=== PATIENT | female | born 2000 | race Caucasian/White ===

== ENCOUNTER 2024-05-10 09:41 | Outpatient (AMB) | payer BC, SELFPAY ==
--- NOTE | 2024-05-10 09:54 | MHC.PC.OV ---
Vital Signs 05/10/24 09:56 Height 5 ft 4.96 in Weight 129 lb 2 oz BMI 21.5 BP 100/62 Blood Pressure Location Lt brachial Position Sitting Respiration 12 Pulse 82 Pulse Source Pulse Oximeter Pulse Oximetry (%) 99 Oxygen Delivery Method Room Air Intake Visit Reasons: cardiovascular tech-est care Intake Note: New patient visit Clinical Advisor Required: No Allergies No Known Allergies Allergy (Verified 05/10/24 09:54) Tobacco use date assessed: 05/10/24 Dental Screening Dental Screen Date: 05/10/24 Did you have a dental visit in the last 12 months?: Yes Did you have a dental problem in the last 6 months where you did not have access to dental care?: No Was dental information given to patient?: Patient has dentist HPI HPI Comments History of Present Illness Details This is a 23-year-old female with no significant past medical history presenting for a physical exam. She is a new patient, but she saw me at [facility]. She has not had any significant medical issues within the past year. She denies ER visits or hospitalizations. Patient is established with [facility] for annual exams. Flu vaccine is given today. She will schedule her eye exam. She is up-to-date with dental visits. She will return for fasting lab work. ROS: Constitutional: No unexplained weight loss, fever, chills, fatigue or night sweats. Eyes: No vision changes, blurry vision, double vision, eye pain, eye redness, eye discharge. ENT: No hearing loss, sneezing, congestion, runny nose or sore throat. Respiratory: No shortness of breath, cough or sputum production. Cardiovascular: No chest pain, chest pressure or chest discomfort. No palpitations or pedal edema. Gastrointestinal: No anorexia, nausea, vomiting or diarrhea. No abdominal pain or blood in stool. Genitourinary: No dysuria, hematuria, urinary frequency. Neurologic: No headache, dizziness, syncope, unilateral weakness, ataxia, numbness or tingling in the extremities. Musculoskeletal: No muscle pain, back pain, joint pain or swelling. Hematologic/Lymphatics: No bleeding or bruising. No painful lymph nodes. Skin: No rash or itching. Endocrine: No cold or heat intolerance. No polyuria or polydipsia. Psychiatric: No depression or anxiety. No SI/HI. Physical exam: Constitutional: Alert, in no distress. Head: Normocephalic. Eyes: Pupils are equal, round and reactive to light. Extraocular muscles intact. Ear, Nose and Throat: Canals clear. TMs normal. Normal nasal mucosa. No nasal discharge. No oral lesions. Neck: Supple, Full range of motion. No lymphadenopathy. No palpable thyroid masses. Respiratory: Clear to auscultation. Cardiovascular: S1 S2 regular. No murmurs. Gastrointestinal: Abdomen soft, non-tender, non-distended. Normal bowel sounds. No palpable masses. Neurologic: No focal neurological deficits. Symmetric patellar reflexes. Moves all extremities spontaneously. Sensation intact bilaterally. Skin: No rashes or lesions. Musculoskeletal: No gross deformities. Normal range of motion. Extremities: Warm and well perfused. No clubbing, cyanosis or edema. 3+ peripheral pulses bilaterally. Psychiatric: Normal mood and affect [facility] Medical History (Updated 05/10/24 @ 10:05 by EFRAÍN Pringle) Screening for cardiovascular condition Routine physical examination Surgical History (Updated 10/17/23 @ 08:12 by Dorothy Parmar CMA) H/O wisdom tooth extraction Family History (Updated 10/17/23 @ 08:15 by Dorothy Parmar CMA) Mother Migraine Father DVT (deep venous thrombosis) High blood cholesterol Sister Ovarian tumor Social History (Updated 10/17/23 @ 08:15 by Dorothy Parmar CMA) Housing: House Alcohol intake: current Patient Tobacco Use Status: Never used Tobacco e-Cigarette/Vaping Use: Never Used Second Hand Smoke Exposure: No service: No Current occupational status: employed 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 1. Little interest or pleasure in doing things: not at all 2. Feeling down, depressed, or hopeless: not at all 3. Trouble falling or staying asleep, or sleeping too much: several days 4. Feeling tired or having little energy: not at all 5. Poor appetite or overeating: not at all 6. Feeling bad about yourself - or that you are a failure or have let yourself or your family down: not at all 7. Trouble concentrating on things, such as reading the newspaper or watching television: several days 8. Moving or speaking so slowly that other people could have noticed. Or the opposite - being so fidgety or restless that you have been moving around a lot more than usual: not at all 9. Thoughts that you would be better off or of hurting yourself in some way: not at all Total score: 2 Depression Screening Interpretation: Negative Depression Screening Done: Yes 29610 - PHQ-9 Billing: Yes Source: Developed by Drs. Pranay Stevenson, Naty Langley, Horacio Marroquin and colleagues, with an educational chele from [employer]. Thrive Questionnaire Date Thrive assessed: 05/10/24 I am a: Patient What is your living situation today?: I have a steady place to live Within the past 12 months, did the food you bought not last and you didn't have the money to get more?: Never true Within the past 12 months, did you worry whether your food would run out before you got money to buy more?: Never true Do you have trouble paying for medicines?: No Do you have trouble getting transportation to medical appointments?: No Do you have trouble paying your heating and electricity bill?: No Do you have trouble taking care of your child, family member or friend?: No Do you have trouble with day-to-day activities such as bathing, preparing meals, shopping, managing finances, etc.?: No Are you currently unemployed and looking for a job?: No Are you interested in more education?: I choose not to answer this question Please select the resources that you would like help with: None Currently or been in a relationship where the following occur: No concerns reported THRIVE Score: 0 AUDIT C Alcohol Use Questionnaire (AUDIT-C) 1. How often do you have a drink containing alcohol?: 2-4 times a month 2. How many drinks containing alcohol do you have on a typical day when you are drinking?: 1 or 2 3. How often do you have six or more drinks on one occasion?: Never Total Score: 2 KARY-7 AMB Questionnaire KARY-7 Date KARY - 7 assessed: 05/10/24 Feeling nervous, anxious, or on edge: 1 = Several days Not being able to stop or control worryin = Several days Worrying too much about different things: 1 = Several days Trouble relaxin = Not at all Being so restless that it is hard to sit still: 0 = Not at all Becoming easily annoyed or irritable: 1 = Several days Feeling afraid as if something awful might happen: 0 = Not at all Total KARY-7 score (0-4 normal; 5-9 mild; 10-14 moderate; 15-21 severe): 4 Source: Developed by Drs. Pranay Stevenson, Naty Langley, Horacio Marroquin and colleagues, with an educational chele from [employer]. KARY-7 Assessment Billing KARY-7 Assessment Tool: KARY-7 Assessment 97170 Physical exam (Primary Care) Vital Signs: Last Vital Signs Pulse 82 05/10/24 09:56 Resp 12 05/10/24 09:56 BP 100/62 05/10/24 09:56 Pulse Ox 99 05/10/24 09:56 Oxygen Delivery Method Room Air 05/10/24 09:56 BMI result Body Mass Index 21.5 Tobacco/Smoking Status: Tobacco use Status Tobacco use date assessed 05/10/24 05/10/24 09:59 Patient Tobacco Use Status Never used Tobacco 05/10/24 09:59 e-Cigarette/Vaping Use Never Used 05/10/24 09:59 PHQ-9: PHQ-9 Score PHQ-9: Total score 2 05/10/24 10:16 Depression Screening Interpretation: Negative Currently or been in a relationship where the following occur: No concerns reported Office Procedures Flu Questionnaire Does the patient have a severe egg allergy?: No Does the patient have severe life threatening allergies?: No Does the patient have a fever or illness today?: No Has the patient ever had Guillain-Aspers Syndrome?: No Has the patient ever had any past reaction to a flu shot?: No Immunizations Fluarix Triv [id number] (PF) 45 mcg (15 mcg x 3)/0.5 mL IM syringe Performing Provider: EFRAÍN Pringle Performing Location: [facility] [place] [facility] Administered by: Dorothy Parmar CMA on 05/10/24 10:25 Dose Route Admin Location Dispensed Lot Number Expiration Date [facility] [place] [employer] Technician 0.5 mL IM Right Deltoid 0.5 mL [id number] 08/27/24 [id number] [employer] VIS Given Date VIS Provided VIS Publication Date 05/10/24 Single Vaccine 20 Eligibility Eligibility Date Funding Source Not [facility] Eligible 05/10/24 Private Coding Level of Care Code Est Pt Prev Care 18-39y(78555) Diagnoses Routine physical examination Z00.00 Additional Codes KARY-7 Assessment Billing - KARY-7 Assessment Tool: KARY-7 Assessment 84270 ([id number]) PHQ-9 - 23080 - PHQ-9 Billing: Yes ([id number]) Assessment & Plan Assessment & Plan (1) Routine physical examination: Code(s): Z00.00 - Encounter for general adult medical examination without abnormal findings Category: Medical Plan Patient is seen today for a routine physical. As part of this visit we reviewed the following issues, which are considered and essential part of preventative health in this age group: - Breast Cancer screening - Annual Economic Development Manager exam - Blood pressure screening - Cholesterol screening - Osteoporosis prevention including calcium/vitamin D intake, weight bearing exercise & smoking cessation - Nutritional and exercise counseling - Counseling of injury prevention including fire prevention, smoke alarms and seat belt usage - Screening for depression - Prevention of and/or testing for infectious diseases - declined screening - Recommendations about immunizations - Recommendation of an eye exam - Screening for substance abuse Return in 1 year for CPE. Orders: Orders Influenza [id number] Immunization Today Z23 - Encounter for immunization Comprehensive Met. Panel Today Z00.00 - Encounter for general adult medical examination without abnormal findings, Z13.6 - Encounter for screening for cardiovascular disorders Lipid Panel Today Z00.00 - Encounter for general adult medical examination without abnormal findings, Z13.6 - Encounter for screening for cardiovascular disorders Complete Blood Count no Diff Today Z00.00 - Encounter for general adult medical examination without abnormal findings, Z13.6 - Encounter for screening for cardiovascular disorders
[2024-05-10 09:56] VITALS: BP 100/62; PULSE 82; RESP 12; O2SAT 99; BMI 21.5
--- OUTSIDE RECORDS SUMMARY | 2024-05-10 11:37 | XMS_ITS | Encounter Summary ---
Author Organization [facility] Address [address] [place] [address] Phone Care Team Providers Care Orthotist Name Role Phone Kim Murillo MD Primary Care Provider [phone] Encounter Details Date Type Department Care Team (Late st Contact Info) Description 11/16/2012 Documentation [facility] [place] Family Medicine [address] [place], [place] [id number] Family Medicine, Physician [address] [place], [place] [address] Social History Tobacco Use Types Packs/Day Years Used Date Smoking Tobacco: Never Assessed Comments Unknown Sex and Gender Information Value Date Recorded Sex Assigned at Female 09/26/2019 4:17 PM EDT Legal Sex Female 5:09 PM EDT Gender Identity Female 09/26/2019 4:17 PM EDT Sexual Orientation Don't know 10/06/2020 3: 26 PM EDT documented as of this encounter Plan of Treatment Not on file documented as of this encounter Visit Diagnoses Not on filedocumented in this encounter Care Teams Orthotist Relationship Specialty Start Date End Date Kim Murillo MD [address] [place] [address] PCP - General Pediatrics 02/28/20 05/31/22 documented as of this encounter
--- OUTSIDE RECORDS SUMMARY | 2024-05-10 11:37 | XMS_ITS | Encounter Summary ---
Author Organization [facility] Address [address] [place] [address] Phone Care Team Providers Care Lusterer Name Role Phone Kim Murillo MD Primary Care Provider [phone] Encounter Details Date Type Department Care Team (Late st Contact Info) Description 03/05/2015 Documentation [facility] [place] Family Medicine [address] [place], [place] 3487[address] Family Medicine, Physician [address] [place], [place] [address]69731 Social History Tobacco Use Types Packs/Day Years [...] on filedocumented in this encounter Care Teams Lusterer Relationship Specialty Start Date End Date iKm Murillo MD [address] [place] [address] PCP - General Pediatrics 02/28/20 05/31/22 documented as of this encounter
--- OUTSIDE RECORDS SUMMARY | 2024-05-10 11:37 | XMS_ITS | Encounter Summary ---
Author Organization [facility] Address [address] [place] [address] Phone Care Team Providers Care Fuse Spooler Name Role Phone Kim Murillo MD Primary Care Provider [phone] Encounter Details Date Type Department Care Team (Late st Contact Info) Description 05/04/[address] [facility] [place] Family Medicine [address] [place], [place] [phone] Family Medicine, Physician [address] [place], [place] 9740[address] Social History Tobacco Use Types Packs/Day Years [...] on filedocumented in this encounter Care Teams Fuse Spooler Relationship Specialty Start Date End Date Kim Murillo MD [address] [place] [address] PCP - General Pediatrics 02/28/20 05/31/22 documented as of this encounter
--- OUTSIDE RECORDS SUMMARY | 2024-05-10 11:37 | XMS_ITS | Encounter Summary ---
Author Organization [facility] Address [address] [place] [address] Phone Care Team Providers Care Certified Adapted Physical Educator Name Role Phone Kim Murillo MD Primary Care Provider Encounter Details Date Type Department Care Team (Late st Contact Info) Description 07/05/2012 Documentation [facility] [place] Family Medicine [address] [place], [place] [phone] Family Medicine, Physician [address] [place], [place] [address]481 Social History Tobacco Use Types Packs/Day Years [...] on filedocumented in this encounter Care Teams Certified Adapted Physical Educator Relationship Specialty Start Date End Date Kim Murillo MD [address] [place] [address] PCP - General Pediatrics 02/28/20 05/31/22 documented as of this encounter
--- OUTSIDE RECORDS SUMMARY | 2024-05-10 11:37 | XMS_ITS | Encounter Summary ---
Author Organization [facility] Address [address] [place] [address] Phone Care Team Providers Care Beauty Counselor Name Role Phone Kim Murillo MD Primary Care Provider [phone] Encounter Details Date Type Department Care Team (Late st Contact Info) Description 05/04/2012 Documentation [facility] [place] [address] [place], [place] [address] Family Medicine, Physician [address] [place], [place] 264541 Social History Tobacco Use Types Packs/Day Years [...] on filedocumented in this encounter Care Teams Beauty Counselor Relationship Specialty Start Date End Date Kim Murillo MD [address] [place] [address] PCP - General Pediatrics 02/28/20 05/31/22 documented as of this encounter
--- OUTSIDE RECORDS SUMMARY | 2024-05-10 11:37 | XMS_ITS | Encounter Summary ---
Author Organization [facility] Address [address] [place] [address] Phone Care Team Providers Care Columnist/Commentator Name Role Phone Kim Murillo MD Primary Care Provider [phone] Encounter Details Date Type Department Care Team (Late st Contact Info) Description 11/16/2012 Documentation [facility] [place] Family Medicine [address] [place], [place] [phone] Family Medicine, Physician [address], [place] 896751 Social History Tobacco Use Types Packs/Day Years [...] on filedocumented in this encounter Care Teams Columnist/Commentator Relationship Specialty Start Date End Date Kim Murillo MD [address] [place] [address] PCP - General Pediatrics 02/28/20 05/31/22 documented as of this encounter
--- OUTSIDE RECORDS SUMMARY | 2024-05-10 11:37 | XMS_ITS | Encounter Summary ---
Author Organization [facility] Address [address] [place] [address] Phone Care Team Providers Care Life Tester [employer]board [employer] Name Role Phone Kim Murillo MD Primary Care Provider [phone] Encounter Details Date Type Department Care Team (Late st Contact Info) Description 07/05/2012 Documentation [facility] [place] Family Medicine [address] [place], [place] [id number] Family Medicine, Physician [address] [place], [place] [address]31 Social History Tobacco Use Types Packs/Day Years [...] on filedocumented in this encounter Care Teams Life Tester [employer] Relationship Specialty Start Date End Date Kim Murillo MD [address] [place] [address] PCP - General Pediatrics 02/28/20 05/31/22 documented as of this encounter
--- OUTSIDE RECORDS SUMMARY | 2024-05-10 11:37 | XMS_ITS | Encounter Summary ---
Author Organization [facility] Address [address] [place] [address] Phone Care Team Providers Care Terminal Clerk Name Role Phone Kim Murillo MD Primary Care Provider [phone] Encounter Details Date Type Department Care Team (Late st Contact Info) Description 05/04/2012 Documentation [facility] [place] [address] [place], [place] [phone] Family Medicine, Physician [address] [place], [place] 754001 Social History Tobacco Use Types Packs/Day Years [...] on filedocumented in this encounter Care Teams Terminal Clerk Relationship Specialty Start Date End Date Kim Murillo MD [address] [place] [address] PCP - General Pediatrics 02/28/20 05/31/22 documented as of this encounter
--- OUTSIDE RECORDS SUMMARY | 2024-05-10 11:37 | XMS_ITS | Encounter Summary ---
Author Organization [facility] Address [address] [place] [address] Phone Care Team Providers Care Payroll Administrative Assistant Name Role Phone Kim Murillo MD Primary Care Provider [phone] Encounter Details Date Type Department Care Team (Late st Contact Info) Description 05/04/2012 Documentation [facility] [place] Family Medicine [address] [place], [place] [phone] Family Medicine, Physician [address] [place], [place] 702851 Social History Tobacco Use Types Packs/Day Years [...] on filedocumented in this encounter Care Teams Payroll Administrative Assistant Relationship Specialty Start Date End Date Kim Murillo MD [address] [place] [address] PCP - General Pediatrics 02/28/20 05/31/22 documented as of this encounter
--- OUTSIDE RECORDS SUMMARY | 2024-05-10 11:37 | XMS_ITS | Encounter Summary ---
Author Organization [facility] Address [address] [place] [address] Phone Care Team Providers Care Farmworker Poultry Name Role Phone Kim Murillo MD Primary Care Provider [phone] Encounter Details Date Type Department Care Team (Late st Contact Info) Description 09/19/2014 Documentation [facility] [place] [address] [place], [place] [phone] Family Medicine, Physician [address] [place], [place] [address]771 Social History Tobacco Use Types Packs/Day Years [...] on filedocumented in this encounter Care Teams Farmworker Poultry Relationship Specialty Start Date End Date Kim Murillo MD [address] [place] [address] PCP - General Pediatrics 02/28/20 05/31/22 documented as of this encounter
--- OUTSIDE RECORDS SUMMARY | 2024-05-10 11:38 | XMS_ITS | Encounter Summary ---
Author Organization [facility] Address [address] [place] [address] Phone Care Team Providers Care Condenser Tube Tender Name Role Phone Kim Murillo MD Primary Care Provider [phone] Encounter Details Date Type Department Care Team (Late st Contact Info) Description 09/04/2013 Documentation [facility] [place] Family Medicine [address] [place], [place] [phone] Family Medicine, Physician [address] [place], [place] 500301 Social History Tobacco Use Types Packs/Day Years [...] on filedocumented in this encounter Care Teams Condenser Tube Tender Relationship Specialty Start Date End Date Kim Murillo MD [address] [place] [address] PCP - General Pediatrics 02/28/20 05/31/22 documented as of this encounter
--- OUTSIDE RECORDS SUMMARY | 2024-05-10 11:38 | XMS_ITS | Encounter Summary ---
Author Organization [facility] Address [address] [place] [address] Phone Care Team Providers Care Avionics Installer Name Role Phone Kim Murillo MD Primary Care Provider [phone] Encounter Details Date Type Department Care Team (Late st Contact Info) Description 09/28/2016 [place] [facility] [place] [address] [place], [place] 3538993 Family Medicine, Physician [address] [place], [place] 813911 Social History Tobacco Use Types Packs/Day Years Used Date Smoking Tobacco: Never Comments:Never smoker Comments Unknown Sex and Gender Information Value [...] on filedocumented in this encounter Care Teams Avionics Installer Relationship Specialty Start Date End Date Kim Murillo MD [address] [place] [address] PCP - General Pediatrics 02/28/20 05/31/22 documented as of this encounter
--- OUTSIDE RECORDS SUMMARY | 2024-05-10 11:38 | XMS_ITS | Encounter Summary ---
Author Organization [facility] Address [address] [place] [address] Phone Care Team Providers Care Hand Silvering Supervisor Name Role Phone Kim Murillo MD Primary Care Provider [phone] Encounter Details Date Type Department Care Team (Late st Contact Info) Description 09/29/2010 Documentation [facility] [place] [address] [place], [place] [phone] Family Medicine, Physician [address], [place] [address]13291 Social History Tobacco Use Types Packs/Day Years [...] on filedocumented in this encounter Care Teams Hand Silvering Supervisor Relationship Specialty Start Date End Date Kim Murillo MD [address] [place] [address] PCP - General Pediatrics 02/28/20 05/31/22 documented as of this encounter
--- OUTSIDE RECORDS SUMMARY | 2024-05-10 11:38 | XMS_ITS | Encounter Summary ---
Author Organization [facility] Address [address] [place] [address] Phone Care Team Providers Care Boy'S Adviser Name Role Phone Kim Murillo MD Primary Care Provider [phone] Encounter Details Date Type Department Care Team (Late st Contact Info) Description 09/29/2010 Documentation [facility] [place] Family Medicine [address] [place], [place] [phone] Family Medicine, Physician [address], [place] 626691 Social History Tobacco Use Types Packs/Day Years [...] on filedocumented in this encounter Care Teams Boy'S Adviser Relationship Specialty Start Date End Date Kim Murillo MD [address] [place] [address] PCP - General Pediatrics 02/28/20 05/31/22 documented as of this encounter
--- OUTSIDE RECORDS SUMMARY | 2024-05-10 11:38 | XMS_ITS | Encounter Summary ---
Author Organization [facility] Address [address] [place] [address] Phone Care Team Providers Care Wharf Attendant Name Role Phone Kim Murillo MD Primary Care Provider Encounter Details Date Type Department Care Team (Late st Contact Info) Description 09/28/2016 Documentation [facility] [place] Family Medicine [address] [place], [place] [phone] Family Medicine, Physician [address] [place], [place] [address]1451 Social History Tobacco Use Types Packs/Day Years [...] on filedocumented in this encounter Care Teams Wharf Attendant Relationship Specialty Start Date End Date Kim Murillo MD [address] [place] [address] PCP - General Pediatrics 02/28/20 05/31/22 documented as of this encounter
--- OUTSIDE RECORDS SUMMARY | 2024-05-10 11:38 | XMS_ITS | Encounter Summary ---
Author Organization [facility] Address [address] [place] [address] Phone Care Team Providers Care Finance And Administration Manager Name Role Phone Kim Murillo MD Primary Care Provider [phone] Encounter Details Date Type Department Care Team (Late st Contact Info) Description 12/04/2010 Documentation [facility] [place] Family Medicine [address] [place], [place] [phone] Family Medicine, Physician [address] [place], [place] [address] Social History Tobacco Use Types Packs/Day Years [...] on filedocumented in this encounter Care Teams Finance And Administration Manager Relationship Specialty Start Date End Date Kim Murillo MD [address] [place] [address] PCP - General Pediatrics 02/28/20 05/31/22 documented as of this encounter
--- OUTSIDE RECORDS SUMMARY | 2024-05-10 11:38 | XMS_ITS | Encounter Summary ---
Author Organization [facility] Address [address] [place] [address] Phone Care Team Providers Care Gear Machine Operator General Name Role Phone Kim Murillo MD Primary Care Provider [phone] Encounter Details Date Type Department Care Team (Late st Contact Info) Description 09/28/2016 Documentation [facility] [place] [address] [place], [place] [phone] Family Medicine, Physician [address] [place] [address] Social History Tobacco Use Types Packs/Day Years [...] on filedocumented in this encounter Care Teams Gear Machine Operator General Relationship Specialty Start Date End Date Kim Murillo MD [address] [place] [address] PCP - General Pediatrics 02/28/20 05/31/22 documented as of this encounter
--- OUTSIDE RECORDS SUMMARY | 2024-05-10 11:38 | XMS_ITS | Encounter Summary ---
Author Organization [facility] Address [address] [place] [address] Phone Care Team Providers Care Compliance Specialist Name Role Phone Kim Murillo MD Primary Care Provider [phone] Encounter Details Date Type Department Care Team (Late st Contact Info) Description 09/29/2010 Documentation [facility] [place] [address] [place], [place] [phone] Family Medicine, Physician [address] [place], [place] [phone] Social History Tobacco Use Types Packs/Day Years [...] on filedocumented in this encounter Care Teams Compliance Specialist Relationship Specialty Start Date End Date Kim Murillo MD [address] [place] [address] PCP - General Pediatrics 02/28/20 05/31/22 documented as of this encounter
--- OUTSIDE RECORDS SUMMARY | 2024-05-10 11:38 | XMS_ITS | Clinical Summary ---
Author Organization [facility] Address [address] [place] [address] Phone Care Team Providers Care Child Nutrition Manager Name Role Phone Unavailable Primary Care Provider Unavailabl e Allergies No known active allergies Medications No known medications Active Problems Problem Noted Date Diagnosed Date Anxiety 05/03/2012 Overview (10/22/2021): Self-managed at the moment. 10/19 - Really struggling today, very difficult to get through the visit. Unclear if anxiety is the issue - pt feels this diagnosis doesn't exactly fit. Did WHO to behavioral health today, but this was not very fruitful, as Dhara was reluctant to participate and has had a rough time with therapy in the past. Assessment & Plan (10/22/2021 7:04 PM EDT): Really struggling today, very difficult to get through the visit. Unclear if anxiety is the issue - pt feels this diagnosis doesn't exactly fit. Did WHO to behavioral health today, but this was not very fruitful, as Dhara was reluctant to participate and has had a rough time with therapy in the past. Will contact patient for follow up. Assessment & Plan (10/06/2020 3:28 PM EDT): Self-managed at the moment, will seek help if she needs it. Immunizations Immunization Administration Dates Next Due COVID-19 Pfizer, monovalent, 12+ years 1 DTaP 5 08/12/2004, 2,01/26/2001,11/24,2000 H1N1 12/17/2008 HPV, Quadrivalent 11/15/2012,07/04/2012,05/04/19 13 Hep A, ped/adol 09/03/2013,09/28/2010 Hep B, ped/adol 04/28/2001,2000,2000 Hib (PRP-T) 11/03/2001, 1,2000,09/22 IPV 08/12/2004, 1,2000,09/22 Influenza Split 02/03/2010 Influenza, injectable, quadr ivalent, preservative free 02/07/2020 Influenza, intranasal, quadrivalent 03/04/2015 Influenza, intranasal, trivalent 05/03/2012,10/0 07/2010 MMR 08/12/2004,07/20/2001 Meningococcal B Trumenba 04/04/2020,09/26/2019 Meningococcal Conj (Menactra) MCV4P 09/27/2016,0 05/03/2012 Pneumococcal Conjugate 01/26/2001,2000, Tdap 05/03/2012 Varicella 08/23/2007,11/03/2001 Family History Medical History Relation Name Comments Kidney nephrosis Father Jerson Relation Name Status Comments Father Jerson Father: Hyperli pidemia, acid reflux, DVT Mother Mary Anne Alive Mother: Migrain es Other No family histo ry of *Heart Disease, Family history of Hyperlipidemia, No family history of *CVA/Stroke, No family history of *Sudden /[place] under 55, No family history of *Dental caries Sister Charlette Alive borderline muci nous ovarian tumor Social History Tobacco Use Types Packs/Day Years Used Date Smoking Tobacco: Never Smokeless Tobacco: Never Comments:Never smoker Alcohol Use Standard Drinks/Week Comments No 0 (1 standard drink = 0.6 oz pur e alcohol) Hunger/Food Answer Date Recorded In the last 12 months, did y ou or your family ever eat less than you felt you should because there wasn't enough money for food? No 10/22/2021 Stable Housing Answer Date Recorded Are you worried that in the next 2 months you may not have stable housing? No 10/22/2021 Transportation Concerns Answer Date Rec orded In the last 12 months, have you or your family ever had to go without healthcare because you didn't have a way to get there? No 10/22/2021 Hazards in Home Answer Date Recorded Think about the place you li ve. Do you have problems with any of the following? Pests (mice or roaches), mold, no/not working smoke detectors, water leaks, no window guards. No 2021 Financing Utilities Answer Date Recorde d In the last 12 months, has t he electric, gas, oil, or water company threatened to shut off your services in your home? No 10/22/2021 Safety at Home Answer Date Recorded Are you or your family worried about feeling saf e in your home? No 10/22/2021 Outside Support Answer Date Recorded Do you feel that you need mo re support from other people or programs to help you care for yourself or your family? No 10/22/2021 Understanding Health Concerns Answer Da te Recorded Do you need help understandi ng your or your child's healthcare needs (diagnosis, medications, plan, etc.)? No 10/22/2021 Financing Health Concerns Answer Date R ecorded In the last 12 months, was t here a time when your child needed to see a doctor or get medications or supplies but could not because of cost? No 10/22/2021 Missing School or Work Answer Date Adrian rded Did you or your child miss s chool or work because of a health problem that could have been avoided? No 10/22/2021 Comments No Sex and Gender Information Value Date Recorded Sex Assigned at Female 09/26/2019 4:17 PM EDT Legal Sex Female 5:09 PM EDT Gender Identity Female 09/26/2019 4:17 PM EDT Sexual Orientation Don't know 10/06/2020 3: 26 PM EDT Last Filed Vital Signs Vital Sign Reading Time Taken Comments Blood Pressure 123/85 10/22/2021 2:04 PM EDT Pulse 96 10/22/2021 2:04 PM EDT Temperature 37.4 ??C (99.3 ??F) 10/22/2021 2:04 PM ED T Respiratory Rate - - Oxygen Saturation - - Inhaled Oxygen Concentration - - Weight 57 kg (125 lb 9.6 oz) 10/22/2021 2:04 PM EDT Height 165.9 cm (5' 5.3 ) 10/22/2021 2:04 PM EDT Body Mass Index 20.71 10/22/2021 2:04 PM EDT Plan of Treatment Health Maintenance Due Date Last Done Comments DTaP,Tdap,and Td Vaccines (7 - Td or Tdap) 05/03/2022 05/03/2012, 08/12/2004, 02/02/2002, Additional history exists Influenza Vaccines (#1) 2023 01/25/20, 02/07/2020, 03/04/2015, Additional history exists COVID-19 Vaccine ( season) 2023 01/24/2022, 02/16/2021, 06/14/2020, Additional history exists Pneumococcal Vaccine Aged Out 01/26/2001, 2000, 2000 No longer eligible based on patient's age to complete this topic Hepatitis B Vaccines Completed 04/28/2001, 2000, 2000 HIB Vaccines Completed 11/03/2001, 12/30, 2000, Additional history exists IPV Vaccines Completed 08/12/2004, 12/30, 2000, Additional history exists MMR Vaccines Completed 08/12/2004, 07/20/2001 Varicella Vaccines Completed 08/23/2007, 11/03/2001 HPV Vaccines Completed 11/15/2012, 08/2012, 05/03/2012 Hepatitis A Vaccines Completed 09/03/2013, 09/29/19 11 Meningococcal Vaccine Completed 09/27/2016, 013 Men B Vaccine Completed 04/04/2020, 09/26/2019 Procedures * Due to [employer] law, this organization might not be sharing sensitive test results. Procedure Name Priority Date/Time Associated Diagnosis Comments CHLAMYDIA AND GONORRHEA, AMPLIFIED Routine 10/22/2021 3:22 PM EDT Encounter for screening examination for chlamydial infection from Last 3 Months or Most Recently Relevant to Health Maintenance Results * Due to [employer] law, this organization might not be sharing sensitive test results. * Chlamydia and Gonorrhoea, Amplified (10/22/2021 3:22 PM EDT) Chlamydia Trachomatis, DNA Probe NEGATIVE (NEG) [facility] Comment: No Chlamydia Trachomatis RNA detected in this patient's sample ? (REFERENCE RANGE/NORMAL VALUE: NOT DETECTED) ? Note: This test uses industrial psychology professor- mediated amplification method to detect rRNA from C. Trachomatis URINE GC AMP PROBE NEGATIVE (NEG) [facility] Comment: No Neisseria Gonorrhoeae RNA detected in this patient's sample ? (REFERENCE RANGE/NORMAL VALUE: NOT DETECTED) ? NOTE: This test uses industrial psychology professor-mediated amplification method to detect rRNA from N.Gonorrhoeae. A negative result does not preclude infection. In the case of a negative urine result, testing of an endocervical(female) or urethral (male) specimen is recommended if there is high clinical suspicion of infection. Due to very high sensitivity of Nucleic Acid Amplification Test, false positive results may occur. Therefore, specimen handling is extremely important. In patients in whom the disease is unlikely, additional sample for testing should be considered after an initial positive result. The performance characteristics of this test have not been evaluated in children. The Aptima Combo2 assay is not intended for the evaluation of suspected sexual abuse or for other medico-legal indications. The ordering provider should assess if the patient had consensual sex without risk of sexual abuse. Consult the [facility] if needed. Contact phone number . Therapeutic failure or success cannot be determined with the Aptima Combo2 assay since nucleic acid may persist following appropriate antimicrobial therapy. The Centers for Disease Control and Prevention (CDC) recommends confirmatory retesting using culture or a different nucleic acid amplification test when positive results occur, if indicated. Testing performed or reported by [facility], a Service of [facility], [facility] [address], [place] [address] Rosalio Gong MD, Aircraft Engine Mechanic [facility]# [id number] Urine (Urine) 10/22/2021 3:2 2 PM EDT 10/22/2021 10:36 PM EDT us Kim Murillo MD LAB MICROBIOLOGY - GENERAL ORDER JOSEPHINE Final Result [facility] from Last 3 Months or Most Recently Relevant to Health Maintenance
--- OUTSIDE RECORDS SUMMARY | 2024-05-10 11:38 | XMS_ITS | Encounter Summary ---
Author Organization [facility] Address [address] [place] [address] Phone Care Team Providers Care Occ Med Physician Name Role Phone Kim Murillo MD Primary Care Provider [phone] Encounter Details Date Type Department Care Team (Late st Contact Info) Description 09/19/2014 [place]ation [facility] [place] [address] [place], [place] [phone] Family Medicine, Physician [address] [place], [place] [address] Social History Tobacco Use Types Packs/Day Years [...] on filedocumented in this encounter Care Teams Occ Med Physician Relationship Specialty Start Date End Date Kim Murillo MD [address] [place] [address] PCP - General Pediatrics 02/28/20 05/31/22 documented as of this encounter
--- OUTSIDE RECORDS SUMMARY | 2024-05-10 11:38 | XMS_ITS | Encounter Summary ---
Author Organization [facility] Address [address] [place] [address] Phone Care Team Providers Care Inventory Administrator Name Role Phone Kim Murillo MD Primary Care Provider [phone] Encounter Details Date Type Department Care Team (Late st Contact Info) Description 09/04/2013 Documentation [facility] [place] Family Medicine [address] [place], [place] [phone] Family Medicine, Physician [address] [place], [place] [address] Social History Tobacco Use Types Packs/Day Years [...] on filedocumented in this encounter Care Teams Inventory Administrator Relationship Specialty Start Date End Date Kim Murillo MD [address] [place] [address] PCP - General Pediatrics 02/28/20 05/31/22 documented as of this encounter
--- OUTSIDE RECORDS SUMMARY | 2024-05-10 11:38 | XMS_ITS | Encounter Summary ---
Author Organization [facility] Address [address] [place] [address] Phone Care Team Providers Care Apron Man Name Role Phone Kim Murillo MD Primary Care Provider [phone] Encounter Details Date Type Department Care Team (Late st Contact Info) Description 12/04/2010 Documentation [facility] [place] [address] [place], [place] [phone] Family Medicine, Physician [address] [place], [place] [address] Social History Tobacco Use Types Packs/Day Years [...] on filedocumented in this encounter Care Teams Apron Man Relationship Specialty Start Date End Date Kim Murillo MD [address] [place] [address] PCP - General Pediatrics 02/28/20 05/31/22 documented as of this encounter
--- OUTSIDE RECORDS SUMMARY | 2024-05-10 11:38 | XMS_ITS | Encounter Summary ---
Author Organization [facility] Address [address] [place] [address] Phone Care Team Providers Care Medical Education Coordinator Name Role Phone Kim Murillo MD Primary Care Provider [phone] Encounter Details Date Type Department Care Team (Late st Contact Info) Description 10/14/2016 Conversion Encounter [facility] [place] [address] [place] [address] Social History Tobacco Use Types Packs/Day Years [...] on filedocumented in this encounter Care Teams Medical Education Coordinator Relationship Specialty Start Date End Date Kim Murillo MD [address] [place] [address] PCP - General Pediatrics 02/28/20 05/31/22 documented as of this encounter
--- OUTSIDE RECORDS SUMMARY | 2024-05-10 11:38 | XMS_ITS | Encounter Summary ---
Author Organization [facility] Address [address] [place] [address] Phone Care Team Providers Care Senior Insight Manager Name Role Phone Kim Murillo MD Primary Care Provider [phone] Encounter Details Date Type Department Care Team (Late st Contact Info) Description 09/24/2015 Documentation [facility] [place] [facility] [place] [address] [place], [place] [phone] Family Medicine, Physician [address], [place] [address] Social History Tobacco Use Types Packs/Day Years [...] on filedocumented in this encounter Care Teams Senior Insight Manager Relationship Specialty Start Date End Date iKm Murillo MD [address] [place] [address] PCP - General Pediatrics 02/28/20 05/31/22 documented as of this encounter
--- OUTSIDE RECORDS SUMMARY | 2024-05-10 11:38 | XMS_ITS | Encounter Summary ---
Author Organization [facility] Address [address] [place] [address] Phone Care Team Providers Care Disc Pad Knockout Worker Name Role Phone Kim Murillo MD Primary Care Provider [phone] Encounter Details Date Type Department Care Team (Late st Contact Info) Description 09/24/2015 Documentation [facility] [place] Family Medicine [address] [place], [place] [phone] Family Medicine, Physician [address], [place] [address] Social History Tobacco Use Types Packs/Day Years [...] on filedocumented in this encounter Care Teams Disc Pad Knockout Worker Relationship Specialty Start Date End Date Kim Murillo MD [address] [place] [address] PCP - General Pediatrics 02/28/20 05/31/22 documented as of this encounter
--- OUTSIDE RECORDS SUMMARY | 2024-05-10 11:38 | XMS_ITS | Encounter Summary ---
Author Organization [facility] Address [address] [place] [address] Phone Care Team Providers Care Mailroom Courier Name Role Phone Kim Murillo MD Primary Care Provider [phone] Encounter Details Date Type Department Care Team (Late st Contact Info) Description 09/04/2013 [place] [facility] [place] [address] [place], [place] [phone] Family Medicine, Physician [address] [place], [place] [address] Social History Tobacco Use Types Packs/Day Years [...] on filedocumented in this encounter Care Teams Mailroom Courier Relationship Specialty Start Date End Date Kim Murillo MD [address] [place] [address] PCP - General Pediatrics 02/28/20 05/31/22 documented as of this encounter
== END 2024-05-10 10:16 | disposition home or self-care (01) ==
LOC: HO.HMCFM 09:42
PROVIDERS: PCP Physician Assistant Medical; Visit Provider Physician Assistant Medical
DX: Z23 Encounter for immunization (principal); Z00.00 Encounter for general adult medical examination without abnormal findings

== ENCOUNTER → 2024-05-10 09:41 | Outpatient (BNVA) | payer BC, SELFPAY | PROVIDERS: PCP Pediatrics; Visit Provider Physician Assistant Medical | DX: Z00.00 Encounter for general adult medical examination without abnormal findings (principal); I10 Essential (primary) hypertension; Z23 Encounter for immunization | CPT/HCPCS: 90471; 90656; 96127 ==